=== PATIENT | female | born 1970 | race Hispanic/Latino ===

== ENCOUNTER 2019-08-15 12:20 | Emergency (ER) | payer BC, OTHER ==
[2019-08-15] MEDS ORDERED: ASPIRIN 325 MG TABLET ONE (12:53)
[2019-08-15] MEDS ORDERED: NITROGLYCERIN 1GM/1 INCH PACKET TD ONE (12:53)
[2019-08-15 13:13] LABS: BASOPHILS % (AUTO) 0.3 % (0.0-5.0); EOSINOPHILS % (AUTO) 0.8 % (0.0-8.0); HEMATOCRIT 41.3 % (36-48); LYMPHOCYTES % (AUTO) 29.3 % (21.0-51.0); MEAN CORPUSCULAR HEMOGLOBIN 30.8 pg (27.0-33.0); MEAN CORPUSCULAR HGB CONC 34.1 g/dL (32.0-36.0); MEAN CORPUSCULAR VOLUME 90.2 fL (79-99); MONOCYTES % (AUTO) 5.5 % (3.0-13.0); NEUTROPHILS % (AUTO) 63.8 % (40.0-77.0); PLATELET COUNT (AUTO) 331 K/uL (130-400); RED BLOOD CELL COUNT(AUTO) 4.58 MIL/uL (4.00-5.50); RED CELL DISTRIBUTION WIDTH 12.8 % (11.0-15.5); WHITE BLOOD COUNT (AUTO) 9.3 K/uL (4.8-10.8)
[2019-08-15 13:30] LABS: INR 0.92 (0.85-1.15); PARTIAL THROMBOPLASTIN TIME 28.5 SEC (26.3-35.5)
[2019-08-15 13:36] LABS: CREATININE 0.8 mg/dL (0.5-1.5); POTASSIUM 3.4 mmol/L (3.5-5.1)
[2019-08-15 13:41] LABS: ALBUMIN 3.5 g/dL (3.5-5.0); BILIRUBIN,TOTAL 0.6 mg/dL (0.2-1.0); TOTAL PROTEIN, SERUM 7.6 g/dL (6.0-8.3)
== END 2019-08-15 17:21 | disposition home or self-care (01) ==
LOC: EDH 12:20
DX: R07.89 Other chest pain (principal); Z90.710 Acquired absence of both cervix and uterus; Z98.890 Other specified postprocedural states; Z72.0 Tobacco use
CPT/HCPCS: 36415; 71045; 80053; 84484; 85025; 85610; 85730; 93005

== ENCOUNTER 2022-03-04 22:06 | Emergency (ER) | payer OTHER ==
[~2022-03-04] VITALS: Ht 152.4 cm; Wt 81.6 kg
[2022-03-04 22:11] VITALS: BP 204/136
[2022-03-04] MEDS ORDERED: LIDOCAINE HCL 1% 20 ML VIAL ONE (22:57)
[2022-03-04] MEDS ORDERED: IBUPROFEN 600 MG TABLET PO ONE (23:00)
[2022-03-04] MEDS ORDERED: TETANUS/DIPHTHERIA TOXOID [ADULT] 0.5 ML VIAL IM ONE (23:00)
[2022-03-05 00:50] LABS: APPEARANCE,URINE CLEAR (CLEAR); BILIRUBIN,URINE NEGATIVE (NEGATIVE); COLOR,URINE COLORLESS (YELLOW); GLUCOSE, URINE (UA) NEGATIVE (NEGATIVE); KETONES,URINE NEGATIVE (NEGATIVE); LEUKOCYTE ESTERASE ,URINE NEGATIVE Leu/uL (NEGATIVE); NITRATE,URINE NEGATIVE (NEGATIVE); OCCULT BLOOD,URINE NEGATIVE (NEGATIVE); PROTEIN,URINE NEGATIVE (NEGATIVE); UROBILINOGEN,URINE 0.2 mg/dL (0.2-1.0)
[2022-03-05 00:56] LABS: MUCUS,URINE RARE LPF (None Seen); RBC,URINE 0-1 /HPF (0-1); SQUAMOUS EPITHELIAL CELL,UR RARE /HPF (0-2); WBC,URINE 0-1 /HPF (0-1)
[2022-03-05] MEDS ORDERED: BACITRACIN 1 EACH PACKET TP ONE (02:23)
[2022-03-05] MEDS ORDERED: AMOX-426 PO (02:42)
[2022-03-05] MEDS ORDERED: IBUP-2070 PO (02:42)
[2022-03-05] MEDS ORDERED: AMOX/CLAV 500/125MG TAB PO ONE (03:00)
[2022-03-05] MEDS ORDERED: ACETAMINOPHEN 500 MG TABLET PO ONE (03:00)
== END 2022-03-05 03:47 | disposition home or self-care (01) ==
LOC: EDH 22:06
DX: S01.81XA Laceration without foreign body of other part of head, initial encounter (principal); M25.561 Pain in right knee; Y08.89XA Assault by other specified means, initial encounter; Y93.89 Activity, other specified; Y92.89 Other specified places as the place of occurrence of the external cause; Y99.8 Other external cause status
CPT/HCPCS: 12015; 70450; 72125; 73562; 81001; 90471; 90714

== ENCOUNTER 2022-12-17 04:02 | Inpatient (IN) | payer OTHER ==
[~2022-12-17] VITALS: Ht 152.4 cm; Wt 76.7 kg
[~2022-12-17 04:02] MED LIST: AMOX-426 PO; IBUP-2070 PO
[2022-12-17 04:57] LABS: BASOPHILS # (AUTO) 0.03 K/uL (0.00-0.20); BASOPHILS % (AUTO) 0.3 % (0.0-5.0); EOSINOPHILS # (AUTO) 0.06 K/uL (0.00-0.70); EOSINOPHILS % (AUTO) 0.6 % (0.0-8.0); HEMATOCRIT 43.5 % (36-48); IMMATURE GRANULOCYTE ABSOLUTE 0.03 K/uL (0-1); LYMPHOCYTES # (AUTO) 2.1 K/uL (1.0-4.8); LYMPHOCYTES % (AUTO) 21.5 % (21.0-51.0); MEAN CORPUSCULAR HEMOGLOBIN 30.9 pg (27.0-33.0); MEAN CORPUSCULAR HGB CONC 33.6 g/dL (32.0-36.0); MEAN CORPUSCULAR VOLUME 92.2 fL (79-99); MONOCYTES # (AUTO) 0.6 K/uL (0.1-1.0); MONOCYTES % (AUTO) 6.7 % (3.0-13.0); NEUTROPHILS # (AUTO) 6.7 K/uL (1.8-7.7); NEUTROPHILS % (AUTO) 70.6 % (40.0-77.0); PLATELET COUNT (AUTO) 354 K/uL (130-400); RED BLOOD CELL COUNT(AUTO) 4.72 MIL/uL (4.00-5.50); RED CELL DISTRIBUTION WIDTH 13.7 % (11.0-15.5); WHITE BLOOD COUNT (AUTO) 9.5 K/uL (4.8-10.8)
[2022-12-17] MEDS ORDERED: FAMOTIDINE 20MG VIAL IV ONE (05:00)
[2022-12-17] MEDS ORDERED: MORPHINE 4 MG SYG IVP ONE (05:00)
[2022-12-17] MEDS ORDERED: METOCLOPRAMIDE 10 MG/2 ML VIAL IVP ONE (05:00)
[2022-12-17 05:09] LABS: APPEARANCE,URINE CLEAR (CLEAR); BILIRUBIN,URINE NEGATIVE (NEGATIVE); COLOR,URINE COLORLESS (YELLOW); GLUCOSE, URINE (UA) NEGATIVE (NEGATIVE); KETONES,URINE NEGATIVE (NEGATIVE); LEUKOCYTE ESTERASE ,URINE NEGATIVE Leu/uL (NEGATIVE); NITRATE,URINE NEGATIVE (NEGATIVE); OCCULT BLOOD,URINE NEGATIVE (NEGATIVE); PROTEIN,URINE NEGATIVE (NEGATIVE); UROBILINOGEN,URINE 0.2 mg/dL (0.2-1.0)
[2022-12-17 05:11] LABS: CREATININE 0.8 mg/dL (0.5-1.5); POTASSIUM 3.5 mmol/L (3.5-5.1)
[2022-12-17 05:13] LABS: ADD UA MICROSCOPIC NO
[2022-12-17 05:15] LABS: ALBUMIN 3.5 g/dL (3.5-5.0); BILIRUBIN,TOTAL 1.3 mg/dL (0.2-1.0); TOTAL PROTEIN, SERUM 7.8 g/dL (6.0-8.3)
[2022-12-17] MEDS ORDERED: IOHEXOL 350 MG/ML 100ML INFUS..BTL IV ONE (05:20)
[2022-12-17] MEDS ORDERED: FENTANYL CITRATE PF 50 MCG/1 ML 2ML VIAL ONE (06:04)
[2022-12-17] MEDS ORDERED: FENTANYL CITRATE PF 50 MCG/1 ML 2ML VIAL IVP ONE (06:30)
[2022-12-17] MEDS ORDERED: ZOSYN 3.375GM+NS 50ML 50 ML IVPB ONE (06:52)
[2022-12-17] MEDS: ZOSYN 3.375GM +NS 50ML IVPB SCH ×2 (07:00→14:23)
[2022-12-17] MEDS ORDERED: 0.9%NACL 50ML IV SCH (07:00)
[2022-12-17] MEDS ORDERED: ONDANSETRON 4MG INJ IVP PRN (07:00)
[2022-12-17] MEDS: 1/2 NS 1000ML 1,000 ML IV SCH (07:11)
[2022-12-17] MEDS: HYDROMORPHONE 0.5 MG SYG (0.5MG/0.5ML) IVP PRN ×4 (08:14→21:10)
[2022-12-17 09:12] VITALS: O2SAT 98
[2022-12-17 11:22] VITALS: BP 160/83; PULSE 55; RESP 16
[2022-12-17] MEDS ORDERED: GADOTERATE MEGLUMINE 10 MMOL/20 ML VIAL IV ONE (11:39)
[2022-12-17 16:18] VITALS: BP 155/75; PULSE 57; RESP 16
[2022-12-17 19:23] VITALS: BP 158/77; PULSE 67; RESP 18
[2022-12-17 20:24] VITALS: O2SAT 97
[2022-12-17 23:00] VITALS: BP 147/80; PULSE 57; RESP 18
[2022-12-18] VITALS (25 sets, daily range): BP systolic 107–166; BP diastolic 51–99; PULSE 59–86; RESP 13–18; O2SAT 95–97
[2022-12-18] MEDS: HYDROMORPHONE 0.5 MG SYG (0.5MG/0.5ML) IVP PRN ×6 (01:40→23:20)
[2022-12-18] MEDS: ZOSYN 3.375GM +NS 50ML IVPB SCH ×4 (01:40→23:14)
[2022-12-18 05:11] LABS: BASOPHILS # (AUTO) 0.02 K/uL (0.00-0.20); BASOPHILS % (AUTO) 0.2 % (0.0-5.0); EOSINOPHILS # (AUTO) 0.08 K/uL (0.00-0.70); EOSINOPHILS % (AUTO) 0.7 % (0.0-8.0); HEMATOCRIT 39.5 % (36-48); IMMATURE GRANULOCYTE ABSOLUTE 0.05 K/uL (0-1); LYMPHOCYTES # (AUTO) 2.2 K/uL (1.0-4.8); LYMPHOCYTES % (AUTO) 19.9 % (21.0-51.0); MEAN CORPUSCULAR HGB CONC 32.9 g/dL (32.0-36.0); MONOCYTES # (AUTO) 0.9 K/uL (0.1-1.0); MONOCYTES % (AUTO) 8.5 % (3.0-13.0); NEUTROPHILS # (AUTO) 7.8 K/uL (1.8-7.7); NEUTROPHILS % (AUTO) 70.2 % (40.0-77.0); PLATELET COUNT (AUTO) 276 K/uL (130-400); RED CELL DISTRIBUTION WIDTH 14.1 % (11.0-15.5); WHITE BLOOD COUNT (AUTO) 11.1 K/uL (4.8-10.8)
[2022-12-18 05:24] LABS: BILIRUBIN,TOTAL 1.2 mg/dL (0.2-1.0); CREATININE 0.7 mg/dL (0.5-1.5); POTASSIUM 3.4 mmol/L (3.5-5.1)
[2022-12-18] MEDS: 1/2 NS 1000ML 1,000 ML IV SCH ×3 (07:36→23:15)
[2022-12-18] MEDS ORDERED: POTASSIUM CHLORIDE 20MEQ/100ML 100 ML IV PRN (08:00)
[2022-12-18] MEDS ORDERED: DEXAMETHASONE SOD PHOSPHATE 10MG/ML 1ML VIAL ONE (15:04)
[2022-12-18] MEDS ORDERED: LIDOCAINE PF 100MG/5ML (2%) SYRINGE 5ML ONE (15:04)
[2022-12-18] MEDS ORDERED: SUCCINYLCHOLINE CHLORIDE 20 MG/ML 10 ML VIAL ONE (15:04)
[2022-12-18] MEDS ORDERED: ONDANSETRON 4MG INJ ONE (15:05)
[2022-12-18] MEDS ORDERED: MIDAZOLAM HCL 1 MG/ML 2ML VIAL ONE (15:05)
[2022-12-18] MEDS ORDERED: NEOSTIGMINE 5MG/5ML SYR IV ONE (15:06)
[2022-12-18] MEDS ORDERED: PROPOFOL 10 MG/ML 20ML VIAL IV ONE (15:06)
[2022-12-18] MEDS ORDERED: GLYCOPYRROLATE 1 MG/5 ML SYRINGE ONE (15:06)
[2022-12-18] MEDS ORDERED: FENTANYL CITRATE PF 50 MCG/1 ML 2ML VIAL ONE ×2 (15:06→16:26)
[2022-12-18] MEDS ORDERED: ROCURONIUM 10MG/1ML SYR 10 MG/ML ML ONE (15:06)
[2022-12-18] MEDS ORDERED: LIDOCAINE HCL 1% 20 ML VIAL MISC ONE (15:23)
[2022-12-18] MEDS ORDERED: BUPIVACAINE/PF 0.25% 30ML VIAL IJ ONE ×2 (15:24→15:33)
[2022-12-18] MEDS ORDERED: LIDOCAINE HCL 1% 20 ML VIAL ONE (15:33)
[2022-12-18] MEDS ORDERED: MEPERIDINE-PF 25 MG/ML SYG ONE (17:06)
[2022-12-19 03:37] VITALS: BP 97/53; PULSE 55; RESP 18
[2022-12-19 05:52] VITALS: BP 171/77; PULSE 65; RESP 18
[2022-12-19 06:43] LABS: ALBUMIN 2.9 g/dL (3.5-5.0); BILIRUBIN,DIRECT 0.2 mg/dL (0.0-0.3); BILIRUBIN,TOTAL 1.1 mg/dL (0.2-1.0); POTASSIUM 4.6 mmol/L (3.5-5.1); TOTAL PROTEIN, SERUM 7.5 g/dL (6.0-8.3)
[2022-12-19] MEDS: 1/2 NS 1000ML 1,000 ML IV SCH (07:00)
[2022-12-19] MEDS: ZOSYN 3.375GM +NS 50ML IVPB SCH (07:24)
[2022-12-19 12:48] VITALS: BP 149/80; PULSE 91; RESP 17
[2022-12-19 15:10] VITALS: BP 152/88; PULSE 70; RESP 20
== END 2022-12-19 17:30 | disposition home or self-care (01) | DRG 419 ==
LOC: EDH 04:02 → EDHIP 04:03 → UNDOADMIN 04:03 → WSH 08:50
PROVIDERS: ADMIT Internal Medicine; ATTEND Internal Medicine
PROC: 0FT44ZZ Resection of Gallbladder, Percutaneous Endoscopic Approach (ICD-10-PCS; principal; 2022-12-18 15:16)
DX: K80.00 Calculus of gallbladder with acute cholecystitis without obstruction (principal); Z20.822 Contact with and (suspected) exposure to COVID-19; I10 Essential (primary) hypertension; K66.0 Peritoneal adhesions (postprocedural) (postinfection)
CPT/HCPCS: 36415; 74178; 74183; 76705; 80053; 80076; 81003; 83690; 84132; 84484; 85025; 87426; 88304; 93005; G0378; J0330; J1100; J1170; J2001; J2175; J2250; J2270; J2405; J2543; J2704; J2710; J2765; J3010; J3480; J3490; Q9967; A9575; S8037

== ENCOUNTER 2023-02-18 21:16 | Emergency (ER) | payer OTHER ==
[~2023-02-18] VITALS: Ht 172.7 cm; Wt 78.0 kg
[2023-02-18 22:50] VITALS: BP 192/108; PULSE 91; RESP 20
[2023-02-18 23:36] LABS: BASOPHILS # (AUTO) 0.04 K/uL (0.00-0.20); BASOPHILS % (AUTO) 0.4 % (0.0-5.0); EOSINOPHILS # (AUTO) 0.46 K/uL (0.00-0.70); EOSINOPHILS % (AUTO) 4.1 % (0.0-8.0); HEMATOCRIT 40.5 % (36-48); IMMATURE GRANULOCYTE ABSOLUTE 0.03 K/uL (0-1); LYMPHOCYTES # (AUTO) 2.9 K/uL (1.0-4.8); LYMPHOCYTES % (AUTO) 25.6 % (21.0-51.0); MEAN CORPUSCULAR HEMOGLOBIN 30.5 pg (27.0-33.0); MEAN CORPUSCULAR HGB CONC 33.1 g/dL (32.0-36.0); MONOCYTES # (AUTO) 0.8 K/uL (0.1-1.0); MONOCYTES % (AUTO) 6.7 % (3.0-13.0); NEUTROPHILS % (AUTO) 62.9 % (40.0-77.0); PLATELET COUNT (AUTO) 329 K/uL (130-400); RED CELL DISTRIBUTION WIDTH 13.8 % (11.0-15.5); WHITE BLOOD COUNT (AUTO) 11.2 K/uL (4.8-10.8)
[2023-02-18 23:50] LABS: CREATININE 0.7 mg/dL (0.5-1.5); POTASSIUM 3.4 mmol/L (3.5-5.1)
[2023-02-18 23:54] LABS: ALBUMIN 3.2 g/dL (3.5-5.0); BILIRUBIN,TOTAL 0.2 mg/dL (0.2-1.0); TOTAL PROTEIN, SERUM 7.3 g/dL (6.0-8.3)
[2023-02-19] MEDS ORDERED: 0.9%NACL 1000ML 1,000 ML IV ONE
[2023-02-19] MEDS ORDERED: DEXAMETHASONE SOD PHOSPHATE 4 MG/ML 1ML VIAL IVP ONE
[2023-02-19] MEDS ORDERED: IOHEXOL 350 MG/ML 100ML INFUS..BTL IV ONE (00:16)
[2023-02-19] MEDS ORDERED: IOHEXOL-350 50ML VIAL IV ONE (00:16)
[2023-02-19] MEDS ORDERED: ACETAMINOPHEN WITH CODEINE 1 TAB TAB PO ONE (02:30)
== END 2023-02-19 02:27 | disposition home or self-care (01) ==
LOC: EDH 21:16
DX: C02.9 Malignant neoplasm of tongue, unspecified (principal); E86.0 Dehydration
CPT/HCPCS: 99285; 70487; 96374; 71045; 80053; 85025; 36415; 70470; 70491; 96361; J1100; J7030; Q9967 ×2

== ENCOUNTER 2023-08-18 21:00 | Inpatient (IN) | payer OTHER ==
[~2023-08-18] VITALS: Ht 152.4 cm; Wt 71.7 kg
[2023-08-18 23:58] LABS: BASOPHILS # (AUTO) 0.01 K/uL (0.00-0.20); BASOPHILS % (AUTO) 0.4 % (0.0-5.0); EOSINOPHILS # (AUTO) 0.03 K/uL (0.00-0.70); EOSINOPHILS % (AUTO) 1.3 % (0.0-8.0); IMMATURE GRANULOCYTE ABSOLUTE 0.01 K/uL (0-1); LYMPHOCYTES # (AUTO) 0.6 K/uL (1.0-4.8); LYMPHOCYTES % (AUTO) 25.2 % (21.0-51.0); MEAN CORPUSCULAR HEMOGLOBIN 32.3 pg (27.0-33.0); MEAN CORPUSCULAR HGB CONC 34.1 g/dL (32.0-36.0); MEAN CORPUSCULAR VOLUME 94.9 fL (79-99); MONOCYTES # (AUTO) 0.6 K/uL (0.1-1.0); MONOCYTES % (AUTO) 25.2 % (3.0-13.0); NEUTROPHILS # (AUTO) 1.1 K/uL (1.8-7.7); NEUTROPHILS % (AUTO) 47.5 % (40.0-77.0); PLATELET COUNT (AUTO) 233 K/uL (130-400); RED CELL DISTRIBUTION WIDTH 15.3 % (11.0-15.5); WHITE BLOOD COUNT (AUTO) 2.3 K/uL (4.8-10.8)
[2023-08-19 00:08] LABS: CREATININE 0.7 mg/dL (0.5-1.0); POTASSIUM 3.8 mmol/L (3.5-5.1)
[2023-08-19 00:12] LABS: ALBUMIN 3.4 g/dL (3.5-5.0); BILIRUBIN,TOTAL 0.7 mg/dL (0.2-1.0); TOTAL PROTEIN, SERUM 7.4 g/dL (6.0-8.3)
[2023-08-19 00:52] LABS: LYMPHOCYTES % (MANUAL) 38 % (22-44); MONOCYTES % (MANUAL) 6 % (2-9); SEGMENTED NEUTROPHILS % 56 % (40-70); TOTAL CELLS COUNTED 100
[2023-08-19 00:54] LABS: MAN.DIFF COMMENT-IMPRESSION MANUAL DIFFERENTIAL
[2023-08-19 00:55] LABS: PLATELET MORPHOLOGY COMMENT ADEQUATE; WBC MORPHOLOGY NORMAL
[2023-08-19] MEDS ORDERED: DICYCLOMINE HCL 20 MG TAB PO PRN (01:30)
[2023-08-19] MEDS: DEXTROSE 5 %-0.45 % NACL 1,000 ML IV SCH (01:43)
[2023-08-19] MEDS: PANTOPRAZOLE 40 MG/VIAL IVP ONE (01:43)
[2023-08-19] MEDS: DICYCLOMINE 20MG (10MG/ML) AMP IM PRN (01:43)
[2023-08-19] MEDS: DICYCLOMINE 20MG (10MG/ML) AMP IM ONE (01:44)
[2023-08-19 06:46] LABS: BASOPHILS # (AUTO) 0.01 K/uL (0.00-0.20); BASOPHILS % (AUTO) 0.6 % (0.0-5.0); EOSINOPHILS # (AUTO) 0.02 K/uL (0.00-0.70); EOSINOPHILS % (AUTO) 1.2 % (0.0-8.0); HEMATOCRIT 34.9 % (36-48); LYMPHOCYTES # (AUTO) 0.6 K/uL (1.0-4.8); LYMPHOCYTES % (AUTO) 32.9 % (21.0-51.0); MEAN CORPUSCULAR HEMOGLOBIN 33.5 pg (27.0-33.0); MEAN CORPUSCULAR HGB CONC 34.7 g/dL (32.0-36.0); MEAN CORPUSCULAR VOLUME 96.7 fL (79-99); MONOCYTES # (AUTO) 0.5 K/uL (0.1-1.0); MONOCYTES % (AUTO) 27.6 % (3.0-13.0); NEUTROPHILS # (AUTO) 0.6 K/uL (1.8-7.7); NEUTROPHILS % (AUTO) 37.7 % (40.0-77.0); PLATELET COUNT (AUTO) 217 K/uL (130-400); RED BLOOD CELL COUNT(AUTO) 3.61 MIL/uL (4.00-5.50); RED CELL DISTRIBUTION WIDTH 15.1 % (11.0-15.5); WHITE BLOOD COUNT (AUTO) 1.7 K/uL (4.8-10.8)
[2023-08-19 07:18] LABS: ALBUMIN 2.8 g/dL (3.5-5.0); BILIRUBIN,TOTAL 0.7 mg/dL (0.2-1.0); CREATININE 0.5 mg/dL (0.5-1.0); POTASSIUM 3.1 mmol/L (3.5-5.1); TOTAL PROTEIN, SERUM 6.5 g/dL (6.0-8.3)
[2023-08-19] MEDS ORDERED: ONDA8TAB12 PO (07:49)
[2023-08-19] MEDS ORDERED: [UNRECOGNIZED DRUG - CODE] IV (07:49)
[2023-08-19] MEDS ORDERED: OXYC5TAB3 PO (07:49)
[2023-08-19] MEDS ORDERED: PROC-3 PO (07:49)
[2023-08-19] MEDS ORDERED: FENT1PAT59 TD (07:49)
[2023-08-19] MEDS ORDERED: LACT10SO85 PO (07:49)
[2023-08-19] MEDS ORDERED: GABA600T10 PO (07:49)
[2023-08-19] MEDS ORDERED: POTASSIUM CHLORIDE 10% ELIXIR 20 MEQ/15 ML UDCUP PO PRN (08:30)
[2023-08-19] MEDS ORDERED: KCL 20 MEQ ERTAB PO PRN (08:30)
[2023-08-19 09:00] VITALS: BP 135/71; PULSE 62; RESP 16
[2023-08-19 09:01] LABS: BILIRUBIN,URINE LARGE mg/dL (NEGATIVE); GLUCOSE, URINE (UA) 100 mg/dL (NEGATIVE); KETONES,URINE 40 mg/dL (NEGATIVE); LEUKOCYTE ESTERASE ,URINE NEGATIVE Leu/uL (NEGATIVE); NITRATE,URINE NEGATIVE (NEGATIVE); OCCULT BLOOD,URINE TRACE-LYSED (NEGATIVE); PH,URINE 6.5 (5.0-8.0); PROTEIN,URINE 30 mg/dL (NEGATIVE)
[2023-08-19 09:10] LABS: ADD UA MICROSCOPIC YES; APPEARANCE,URINE CLOUDY (CLEAR); COLOR,URINE GREEN (YELLOW)
[2023-08-19] MEDS: PANTOPRAZOLE 40 MG/VIAL IVP SCH (09:10)
[2023-08-19 09:25] LABS: BACTERIA,URINE Moderate /HPF (None Seen); RBC,URINE 0-1 /HPF (0-1)
[2023-08-19 09:26] LABS: MUCUS,URINE Few LPF (None Seen)
[2023-08-19 11:55] VITALS: BP 138/80; PULSE 72; RESP 17
[2023-08-19] MEDS: POTASSIUM CHLORIDE 20MEQ/100ML 100 ML IV PRN (14:35)
[2023-08-19 15:53] VITALS: BP 121/62; PULSE 57; RESP 16
[2023-08-19] MEDS ORDERED: LACTULOSE 20 GM/30 ML UDCUP PO PRN (17:30)
[2023-08-19] MEDS: BISACODYL 10 MG SUPP.RECT RC ONE (17:36)
[2023-08-19] MEDS ORDERED: METHYLENE BLUE TP PRN (18:00)
[2023-08-19] MEDS ORDERED: Prochlorperazine Maleate 10 MG PO PRN (18:00)
[2023-08-19 20:20] VITALS: BP 149/78; PULSE 78; RESP 18
[2023-08-19] MEDS: GABAPENTIN 300 MG CAPSULE PO SCH (20:23)
[2023-08-20] VITALS (8 sets, daily range): BP systolic 121–138; BP diastolic 57–80; PULSE 53–83; RESP 16–18; O2SAT 97
[2023-08-20 06:26] LABS: BASOPHILS # (AUTO) 0.01 K/uL (0.00-0.20); BASOPHILS % (AUTO) 0.6 % (0.0-5.0); EOSINOPHILS # (AUTO) 0.03 K/uL (0.00-0.70); EOSINOPHILS % (AUTO) 1.8 % (0.0-8.0); HEMATOCRIT 33.8 % (36-48); LYMPHOCYTES # (AUTO) 0.6 K/uL (1.0-4.8); LYMPHOCYTES % (AUTO) 32.2 % (21.0-51.0); MEAN CORPUSCULAR HEMOGLOBIN 32.6 pg (27.0-33.0); MEAN CORPUSCULAR VOLUME 95.8 fL (79-99); MONOCYTES # (AUTO) 0.4 K/uL (0.1-1.0); MONOCYTES % (AUTO) 23.4 % (3.0-13.0); NEUTROPHILS # (AUTO) 0.7 K/uL (1.8-7.7); PLATELET COUNT (AUTO) 227 K/uL (130-400); RED BLOOD CELL COUNT(AUTO) 3.53 MIL/uL (4.00-5.50); RED CELL DISTRIBUTION WIDTH 15.1 % (11.0-15.5); WHITE BLOOD COUNT (AUTO) 1.7 K/uL (4.8-10.8)
[2023-08-20 06:41] LABS: ALBUMIN 2.5 g/dL (3.5-5.0); BILIRUBIN,TOTAL 0.5 mg/dL (0.2-1.0); CREATININE 0.6 mg/dL (0.5-1.0); POTASSIUM 3.2 mmol/L (3.5-5.1); TOTAL PROTEIN, SERUM 5.9 g/dL (6.0-8.3)
[2023-08-20] MEDS: PANTOPRAZOLE 40 MG/VIAL IVP SCH (10:04)
[2023-08-20] MEDS: ONDANSETRON ODT 4MG TAB PO PRN (10:04)
[2023-08-20] MEDS: OXYCODONE HCL 5 MG TAB PO PRN (10:05)
[2023-08-20] MEDS: LEVOFLOXACIN 500 MG/D5W 100 ML 100 ML IV SCH (17:47)
[2023-08-21 00:14] VITALS: BP 118/70; PULSE 64; RESP 18
[2023-08-21 04:35] VITALS: BP 120/71; PULSE 59; RESP 18
[2023-08-21 08:00] VITALS: O2SAT 96
[2023-08-21] MEDS: TBO-FILGRASTIM 300 MCG/0.5 ML ML SQ SCH (08:29)
[2023-08-21 08:41] VITALS: BP 124/68; PULSE 69; RESP 16
[2023-08-21 11:31] VITALS: BP 116/65; PULSE 63; RESP 16
[2023-08-21 14:51] LABS: HEMATOCRIT 37.7 % (36-48); MEAN CORPUSCULAR HEMOGLOBIN 33.7 pg (27.0-33.0); MEAN CORPUSCULAR HGB CONC 34.7 g/dL (32.0-36.0); MEAN CORPUSCULAR VOLUME 96.9 fL (79-99); PLATELET COUNT (AUTO) 232 K/uL (130-400); RED BLOOD CELL COUNT(AUTO) 3.89 MIL/uL (4.00-5.50); RED CELL DISTRIBUTION WIDTH 15.3 % (11.0-15.5); WHITE BLOOD COUNT (AUTO) 5.5 K/uL (4.8-10.8)
[2023-08-21 15:29] LABS: BAND NEUTROPHILS % (MANUAL) 10 % (0-2); LYMPHOCYTES % (MANUAL) 21 % (22-44); MAN.DIFF COMMENT-IMPRESSION MANUAL DIFFERENTIAL; MONOCYTES % (MANUAL) 3 % (2-9); REACTIVE LYMPHOCYTES 1 % (0-0); SEGMENTED NEUTROPHILS % 65 % (40-70); TOTAL CELLS COUNTED 100
[2023-08-21 15:31] LABS: PLATELET MORPHOLOGY COMMENT LARGE PLTS PRESENT
[2023-08-21 16:27] VITALS: BP 120/69; PULSE 69; RESP 16
== END 2023-08-21 18:30 | disposition home or self-care (01) | DRG 810 ==
LOC: EDH 21:00 → EDHIP 21:01 → 4AH 08-19 07:00
PROVIDERS: ADMIT Internal Medicine; ATTEND Internal Medicine
DX: D70.1 Agranulocytosis secondary to cancer chemotherapy (principal); C02.9 Malignant neoplasm of tongue, unspecified; D64.81 Anemia due to antineoplastic chemotherapy; K59.00 Constipation, unspecified; N83.202 Unspecified ovarian cyst, left side; R50.81 Fever presenting with conditions classified elsewhere; T45.1X5A Adverse effect of antineoplastic and immunosuppressive drugs, initial encounter; Y92.89 Other specified places as the place of occurrence of the external cause; K12.31 Oral mucositis (ulcerative) due to antineoplastic therapy; R13.19 Other dysphagia; Z82.49 Family history of ischemic heart disease and other diseases of the circulatory system; Z90.710 Acquired absence of both cervix and uterus; Z92.3 Personal history of irradiation
CPT/HCPCS: 36415; 74176; 74230; 80053; 81001; 82550; 83690; 84484; 85025; 87088; 92610; 92611; 93005; 96372; 96374; 96375; C9113; G0378; J0500; J1956; J3480; J7042; J1447